=== PATIENT | male | born 1930 | race Caucasian/White ===

== ENCOUNTER 2018-09-10 07:35 | Day surgery (SDC) ==
--- NOTE | 2018-09-07 09:21 | EKG Report ---
Test Performed on : 09/07/2018 08:52:36 AM Test Reason : PAT Blood Pressure : / mmHG Vent. Rate : 058 BPM Atrial Rate : 058 BPM P-R Int : 176 ms QRS Dur : 098 ms QT Int : 428 ms P-R-T Axes : 017 -06 013 degrees QTc Int : 420 ms Sinus bradycardia. Incomplete right bundle branch block Borderline ECG When compared with ECG of 22-MAY-2014 16:31, Nonspecific T wave abnormality, improved in Inferior leads Nonspecific T wave abnormality no longer evident in Lateral leads Confirmed by Scarlett MOREL, Sharif Tinoco ([id number]) on 09/08/2018 10:01:31 AM
[2018-09-07 09:50] LABS: HEMOGLOBIN 15.5 g/dL (14.0-18.0); MCH 27.9 PG (27-31); MCV 84.7 FL (81-99); RBC 5.55 XMIL (4.7-6.1); RDW 13.8 % (11.5-14.5); WBC 6.31 X1000 (4.8-10.8)
[2018-09-07 09:56] LABS: INR 0.91
[2018-09-07 10:50] LABS: AGAP 14; BUN 11 mg/dL (8-22); CALCIUM 9.7 mg/dL (8.8-10.2); CHLORIDE 102 mmol/L (98-107); COSMO 274; CREATININE 0.6 mg/dL (0.7-1.2); ESTIMATED GFR > 60; GLUCOSE 119 mg/dL (70-104); POTASSIUM 4.1 mmol/L (3.5-5.1); SODIUM 137 mmol/L (136-145); TCO2 21 mmol/L (25-35)
[2018-09-10] MEDS ORDERED: LR 1,000 ML ONE (08:41)
[2018-09-10] MEDS ORDERED: KEFZOL 1 GM/D5W 2 GM/100 ML IVPB ONE (08:41)
[2018-09-10] MEDS ORDERED: DIPRIVAN 1% ONE (09:55)
[2018-09-10] MEDS ORDERED: EPHEDRINE ONE (10:36)
[2018-09-10] MEDS ORDERED: NS 1,000 ML ONE (12:13)
[2018-09-10] MEDS ORDERED: MORPHINE IV PRN (12:14)
[2018-09-10] MEDS ORDERED: NORCO-7.5 PO PRN (12:15)
[2018-09-10] MEDS ORDERED: LABETALOL IV PRN (12:15)
[2018-09-10] MEDS ORDERED: OFIRMEV 1000 MG/ISOTONIC SOLN 1,000 MG/100 ML BOTTLE IV PRN (12:15)
[2018-09-10] MEDS ORDERED: NORCO-5 PO PRN (12:15)
[2018-09-10] MEDS ORDERED: PHENERGAN PO PRN (12:15)
[2018-09-10] MEDS ORDERED: ZOFRAN IV PRN (12:15)
[2018-09-10] MEDS ORDERED: NS 1,000 ML IV SCH (14:00)
[2018-09-10] MEDS ORDERED: TYLENOL WITH CODEINE #3 PO PRN (15:45)
[2018-09-10] MEDS: KEFZOL 2 GM/D5W 2 GM/50 ML IVPB IV SCH (17:20)
[2018-09-10] MEDS: NS 1,000 ML IV SCH (17:23)
[2018-09-10] MEDS ORDERED: PERIDEX MT ONE (21:18)
[2018-09-10] MEDS: COLACE PO SCH (22:00)
[2018-09-10] MEDS: MYSOLINE PO SCH (22:05)
[2018-09-10] MEDS: NORCO-10 PO PRN (22:05)
[2018-09-10] MEDS: PERIDEX MT SCH (22:06)
[2018-09-11] MEDS: KEFZOL 2 GM/D5W 2 GM/50 ML IVPB IV SCH ×2 (01:57→10:07)
[2018-09-11] MEDS: NS 1,000 ML IV SCH (01:57)
[2018-09-11] MEDS: NORCO-10 PO PRN ×2 (02:12→06:45)
[2018-09-11 03:50] LABS: URINE SOURCE CATH
[2018-09-11 03:58] LABS: BILIRUBIN URINE NEGATIVE (NEGATIVE); BLOOD URINE LARGE (NEGATIVE); COLOR BROWN; GLUCOSE URINE NEGATIVE (NEGATIVE); KETONE URINE NEGATIVE (NEGATIVE); LEUKOCYTES URINE MODERATE (NEGATIVE); NITRITE URINE NEGATIVE (NEGATIVE); PROTEIN URINE 30 mg/dL (NEGATIVE); SP GRAVITY URINE 1.005; TURBIDITY URINE HAZY (CLEAR); UROBILINOGEN URINE NORMAL (NORMAL)
[2018-09-11 03:59] LABS: UR EPITHELIAL CELLS <10 /HPF (<10); URINE BACTERIA NEGATIVE /HPF; URINE RBC TNTC /HPF (<10)
[2018-09-11 06:44] LABS: AGAP 11; BUN 5 mg/dL (8-22); CALCIUM 8.6 mg/dL (8.8-10.2); CHLORIDE 102 mmol/L (98-107); COSMO 271; CREATININE 0.5 mg/dL (0.7-1.2); ESTIMATED GFR > 60; GLUCOSE 93 mg/dL (70-104); POTASSIUM 3.4 mmol/L (3.5-5.1); SODIUM 137 mmol/L (136-145); TCO2 24 mmol/L (25-35)
[2018-09-11 06:46] LABS: HEMATOCRIT 41.2 % (42.0-52.0); HEMOGLOBIN 13.9 g/dL (14.0-18.0); MCH 28.6 PG (27-31); MCHC 33.7 g/dL (33-37); MCV 84.8 FL (81-99); MPV 10.7 FL (7.4-10.4); RBC 4.86 XMIL (4.7-6.1); RDW 13.7 % (11.5-14.5); WBC 7.88 X1000 (4.8-10.8)
[2018-09-11] MEDS ORDERED: FLOMAX PO SCH (09:00)
[2018-09-11] MEDS ORDERED: NORVASC PO SCH (09:00)
[2018-09-11] MEDS ORDERED: GLUCOSAMINE 500 MG/CHONDROITIN 400 MG PO SCH (09:00)
[2018-09-11] MEDS ORDERED: VITAMIN D PO SCH (09:00)
[2018-09-11] MEDS ORDERED: COZAAR PO SCH (09:00)
[2018-09-11] MEDS: PERIDEX MT SCH (10:05)
[2018-09-11] MEDS: COLACE PO SCH (10:06)
[2018-09-11] MEDS: MYSOLINE PO SCH (10:06)
[2018-09-11 10:52] VITALS: BP 155/66
--- NOTE | 2018-10-12 19:45 | OPERATIVE NOTE ---
PROCEDURE DATE: 09/10/2018 SURGEON: Dr. Donovan Funes. PREOPERATIVE DIAGNOSES: 1. Benign prostatic hypertrophy. 2. Weak stream. POSTOPERATIVE DIAGNOSIS: 1. Benign prostatic hypertrophy. 2. Weak stream. PROCEDURE: GreenLight transurethral resection of the prostate. INDICATIONS: An 88-year-old male with a long history of BPH with nocturia, weak stream, and postvoid dribbling. He has been on Flomax and finasteride for a number of years. He reports worsening symptoms. He desires intervention. FINDINGS: Bilobar prostatic hypertrophy with obstruction. Adequate hemostasis at the conclusion of the case. DESCRIPTION OF PROCEDURE: After obtaining informed consent, the patient was brought to the operating room. Perioperative antibiotics and laryngeal mask anesthesia were administered. He was placed in lithotomy position, prepped and draped in a sterile fashion. A 23-Turkish continuous flow cystoscope was introduced and his prostatic urethra and bladder were examined in a systematic fashion. He had significant bilobar hypertrophy with obstruction. His bladder showed moderate trabeculations, no evidence of mucosal lesions, no sizable diverticula, no stones seen within the bladder lumen. We then introduced a GreenLight laser fiber. 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 This was done distally to the level of the verumontanum making sure we did not go past the verumontanum. We then increased power to the 120 morrison and performed resection of the lateral lobes. The power then decreased back to 80 morrison and anterior tissue was removed. Hemostasis was obtained along the way. At the completion, I was able to see capsule circumferentially. There was no evidence of significant bleeding. There was a very nice TURP channel when looking from the verumontanum. Examination of the ureteral orifices confirmed that there were not involved with the resection. We then removed the resectoscope and introduced a 20-Turkish [address] Rosado catheter which was placed on light traction and connected to normal saline continuous bladder irrigation. He was extubated and taken to PACU for further recovery. ESTIMATED BLOOD LOSS: 30 mL. COMPLICATIONS: None. SPECIMENS: None. DRAINS: A 20-Turkish [address] Rosado catheter. DISPOSITION: To PACU and subsequently floor for observation with continuous bladder irrigation to be titrated. cc: Donovan Funes MD
== END 2018-09-11 13:19 | disposition home or self-care (01) ==
LOC: OPS 07:35 → PAT 07:35 → 4N 07:35 → OPS 09-11 13:19
PROVIDERS: ATTEND Urology
PROC: UR.TURP (2018-09-10 10:05)
CPT/HCPCS: 80048; 81001; 85027; 85610; 85730; 87088; 93005; 93010; 94761; 94799; A9270; J0690; J7030; J7120